=== PATIENT | male | born 1980 | race Caucasian/White ===

== ENCOUNTER 2016-07-30 13:34 | Emergency (ER) | payer OTHER ==
[2016-07-30] MEDS ORDERED: NO HOME MEDICATION XX (13:52)
[2016-07-30] MEDS ORDERED: KEFLEX500 M4 PO (16:11)
[2016-07-30] MEDS ORDERED: NORCO 7.5-3251 EACH PO (16:16)
== END 2016-07-30 16:29 ==
LOC: EDMED 13:34
PROC: 0HQJXZZ Repair Left Upper Leg Skin, External Approach (ICD-10-PCS; principal; 2016-07-30)
DX: S71.112A Laceration without foreign body, left thigh, initial encounter (principal); F17.200 Nicotine dependence, unspecified, uncomplicated; Z23 Encounter for immunization; W22.8XXA Striking against or struck by other objects, initial encounter